=== PATIENT | male | born 2000 | race Caucasian/White ===

== ENCOUNTER 2025-06-18 19:19 | Emergency (ER) | payer OTHER ==
[~2025-06-18] VITALS: Ht 177.8 cm; Wt 80.6 kg
[2025-06-18 19:31] VITALS: BP 130/79; TEMP 100.5; O2SAT 98
[2025-06-18] MEDS: LIDOCAINE 2% MDV 20 ML VIAL SC ONE (21:23)
[2025-06-18] MEDS ORDERED: SULF1TAB23 PO (21:59)
[2025-06-18] MEDS ORDERED: KETO-204 PO (22:03)
[2025-06-18] MEDS ORDERED: BACTRIM 160MG/800MG DS TAB PO ONE (22:05)
== END 2025-06-18 22:14 | disposition home or self-care (01) ==
LOC: M ED 19:19
DX: L02.01 Cutaneous abscess of face (principal); Z79.2 Long term (current) use of antibiotics; Z79.899 Other long term (current) drug therapy